=== PATIENT | male | born 1985 | race Caucasian/White ===

== ENCOUNTER 2019-05-14 08:26 | Inpatient (IN) | payer BC, MEDICAID ==
[~2019-05-14] VITALS: Ht 172.7 cm; Wt 127.0 kg
[2019-05-14 08:36] VITALS: BP 147/90
[2019-05-14] MEDS ORDERED: LIDOCAINE/EPI 2% 1:100000 20 ML VIAL INJ ONE ×2 (10:24→10:25)
[2019-05-14] MEDS ORDERED: NACL 0.9% 1,000 ML IV ONE (10:30)
[2019-05-14 10:50] LABS: HEMATOCRIT 44.1 % (36-52); HEMOGLOBIN 14.7 g/dL (12.0-18.0); MEAN CORPUSCULAR HEMOGLOBIN 32 pg (27-31); MEAN CORPUSCULAR HGB CONC 33 g/dL (33-37); MEAN CORPUSCULAR VOLUME 94.9 fL (80-94); PLATELET COUNT (AUTO) 347 K/uL (140-450); RED BLOOD CELL COUNT(AUTO) 4.65 MIL/uL (4.20-6.10); RED CELL DISTRIBUTION WIDTH 13.1 % (11.6-13.7); WHITE BLOOD COUNT (AUTO) 23.2 K/uL (4.8-10.8)
[2019-05-14 10:57] LABS: ANION GAP 14.2 (8-16); CARBON DIOXIDE 25.9 mmol/L (21-32); POTASSIUM 4.1 mmol/L (3.5-5.1)
[2019-05-14 11:00] LABS: LYMPHOCYTES % (MANUAL) 11 % (20-46)
[2019-05-14 11:01] LABS: MONOCYTES % (MANUAL) 8 % (5-12)
[2019-05-14 11:12] LABS: TOTAL BILIRUBIN 0.6 mg/dL (0.0-1.0)
[2019-05-14] MEDS ORDERED: PIPERACILLIN/TAZOBACTAM 3.375 GM in DEXTROSE 5% 50 ML IV ONE (11:35)
[2019-05-14] MEDS ORDERED: VANCOMYCIN 1,000 MG in DEXTROSE 5% 250 ML IV ONE (11:35)
[2019-05-14] MEDS ORDERED: VANCOMYCIN 1,000 MG VIAL ONE ×2 (11:51→21:29)
[2019-05-14] MEDS ORDERED: ONDANSETRON 4 MG/2 ML VIAL IVP PRN ×2 (17:55→19:00)
[2019-05-14] MEDS ORDERED: ACETAMINOPHEN 325 MG TAB PO PRN (17:55)
[2019-05-14] MEDS ORDERED: LABETALOL 100 MG/20 ML VIAL ONE (18:39)
[2019-05-14] MEDS ORDERED: hydrALAZINE 20 MG/ML VIAL ONE (18:39)
[2019-05-14] MEDS ORDERED: KETAMINE 500 MG/5 ML VIAL ONE (18:41)
[2019-05-14] MEDS ORDERED: MIDAZOLAM 2 MG/2 ML VIAL ONE (18:41)
[2019-05-14] MEDS ORDERED: BUPIVACAINE-MPF/EPI 0.5% 30 ML VIAL INJ ONE ×2 (18:47→19:13)
[2019-05-14] MEDS ORDERED: BLOOD GLUCOSE MONITORING 1 DEV DEV FS SCH (19:00)
[2019-05-14] MEDS ORDERED: HYDROmorphone 1 MG/ML AMP IVP PRN (19:00)
[2019-05-14 19:03] LABS: FREE T4 (FREE THYROXINE) 1.44 ng/dL (0.76-1.46); MAGNESIUM 1.8 mg/dL (1.8-2.4); PHOSPHORUS 3.5 mg/dL (2.5-4.9); THYROID STIMULATING HORMONE 2.78 uIU/mL (0.34-3.74)
[2019-05-14] MEDS ORDERED: LIDOCAINE 1% 500 MG/50 ML VIAL ONE (19:03)
[2019-05-14 19:12] LABS: PROTHROMBIN TIME 10.4 secs (10.8-13.4)
[2019-05-14 20:25] VITALS: BP 135/75
[2019-05-14] MEDS ORDERED: VANCOMYCIN PER PHARMACY MC PRN (20:45)
[2019-05-14] MEDS ORDERED: DEXTROSE 50% 50 ML SYR IVP PRN (20:50)
[2019-05-14] MEDS: DOCUSATE SODIUM 100 MG GELCAP PO SCH (21:38)
[2019-05-14] MEDS: NACL 0.9% 1,000 ML IV SCH (21:38)
[2019-05-14] MEDS: BLOOD GLUCOSE MONITORING 1 DEV DEV FS SCH (21:48)
[2019-05-14] MEDS: INSULIN LISPRO SLIDING SCALE 100 UNITS/ML VIAL SUBQ PRN (21:58)
[2019-05-14] MEDS ORDERED: VANCOMYCIN 1GM/DEXT 5% PREMIX 200 ML IV SCH (22:00)
[2019-05-15] VITALS: BP 126/73
[2019-05-15] MEDS ORDERED: PIPERACILLIN/TAZOBACTAM 3.375 GM VIAL IV ONE ×2 (00:26→05:36)
[2019-05-15] MEDS: PIPERACILLIN/TAZOBACTAM 3.375 GM in DEXTROSE 5% 50 ML IV SCH ×5 (00:33→23:25)
[2019-05-15] MEDS: NACL 0.9% 1,000 ML IV SCH ×4 (05:54→21:29)
[2019-05-15] MEDS: BLOOD GLUCOSE MONITORING 1 DEV DEV FS SCH ×4 (06:31→21:14)
[2019-05-15] MEDS: INSULIN LISPRO SLIDING SCALE 100 UNITS/ML VIAL SUBQ PRN ×3 (06:35→21:27)
[2019-05-15 07:16] LABS: CHOL/HDL RATIO 8.3 (1-4.5)
[2019-05-15 08:00] VITALS: BP 113/70
[2019-05-15 08:32] LABS: BASOPHILS # (AUTO) 0.1 K/uL (0.00-0.22); BASOPHILS % (AUTO) 0.3 % (0.0-2.0); EOSINOPHILS # (AUTO) 0.2 K/uL (0-0.4); EOSINOPHILS % (AUTO) 1.2 % (0.0-4.0); HEMATOCRIT 43.2 % (36-52); HEMOGLOBIN 14.4 g/dL (12.0-18.0); LYMPHOCYTES # (AUTO) 1.7 K/uL (2.0-11.5); MEAN CORPUSCULAR HEMOGLOBIN 32 pg (27-31); MEAN CORPUSCULAR HGB CONC 33 g/dL (33-37); MEAN CORPUSCULAR VOLUME 95.2 fL (80-94); MONOCYTES # (AUTO) 1.1 K/uL (0.8-1.0); NEUTROPHILS # (AUTO) 12.8 K/uL (1.8-7.7); NEUTROPHILS % (AUTO) 80.5 % (42.2-75.2); PLATELET COUNT (AUTO) 378 K/uL (140-450); RED BLOOD CELL COUNT(AUTO) 4.54 MIL/uL (4.20-6.10); RED CELL DISTRIBUTION WIDTH 13.1 % (11.6-13.7); WHITE BLOOD COUNT (AUTO) 15.9 K/uL (4.8-10.8)
[2019-05-15] MEDS: LACTOBACILLUS RHAMNOSUS GG 1 EACH CAP PO SCH (08:41)
[2019-05-15] MEDS: VANCOMYCIN 1,500 MG in NACL 0.9% 500 ML IV SCH ×2 (08:41→16:36)
[2019-05-15] MEDS: DOCUSATE SODIUM 100 MG GELCAP PO SCH ×2 (08:41→21:14)
[2019-05-15 09:30] LABS: MAGNESIUM 1.8 mg/dL (1.8-2.4); PHOSPHORUS 3.9 mg/dL (2.5-4.9)
[2019-05-15] MEDS: MORPHINE SULFATE 4 MG/ML SYR IVP PRN (10:24)
[2019-05-15 11:15] LABS: ANION GAP 16.3 (8-16); CARBON DIOXIDE 23.8 mmol/L (21-32); CREATININE 0.9 mg/dL (0.7-1.3); POTASSIUM 4.1 mmol/L (3.5-5.1)
[2019-05-15 16:00] VITALS: BP 110/74
[2019-05-15] MEDS: HYDROcodone/APAP 7.5/325 MG 1 TAB PO PRN (16:51)
[2019-05-16 00:22] VITALS: BP 140/86
[2019-05-16] MEDS: VANCOMYCIN 1,500 MG in NACL 0.9% 500 ML IV SCH ×3 (01:20→18:30)
[2019-05-16] MEDS: INSULIN LISPRO SLIDING SCALE 100 UNITS/ML VIAL SUBQ PRN ×3 (06:29→20:47)
[2019-05-16] MEDS: BLOOD GLUCOSE MONITORING 1 DEV DEV FS SCH ×4 (06:29→20:48)
[2019-05-16] MEDS: PIPERACILLIN/TAZOBACTAM 3.375 GM in DEXTROSE 5% 50 ML IV SCH ×4 (06:32→23:18)
[2019-05-16 07:33] LABS: CARBON DIOXIDE 27.4 mmol/L (21-32); CREATININE 0.8 mg/dL (0.7-1.3); POTASSIUM 4.4 mmol/L (3.5-5.1)
[2019-05-16 07:34] LABS: MAGNESIUM 1.9 mg/dL (1.8-2.4); PHOSPHORUS 4.1 mg/dL (2.5-4.9)
[2019-05-16 08:00] VITALS: BP 135/93
[2019-05-16 08:28] LABS: BASOPHILS # (AUTO) 0.1 K/uL (0.00-0.22); BASOPHILS % (AUTO) 1.2 % (0.0-2.0); EOSINOPHILS # (AUTO) 0.3 K/uL (0-0.4); EOSINOPHILS % (AUTO) 2.7 % (0.0-4.0); HEMATOCRIT 42.6 % (36-52); HEMOGLOBIN 13.9 g/dL (12.0-18.0); LYMPHOCYTES # (AUTO) 2.3 K/uL (2.0-11.5); LYMPHOCYTES % (AUTO) 18.4 % (20.5-51.1); MEAN CORPUSCULAR HEMOGLOBIN 31 pg (27-31); MEAN CORPUSCULAR HGB CONC 33 g/dL (33-37); MEAN CORPUSCULAR VOLUME 95.8 fL (80-94); MONOCYTES # (AUTO) 0.9 K/uL (0.8-1.0); MONOCYTES % (AUTO) 7.6 % (1.7-9.3); NEUTROPHILS # (AUTO) 8.7 K/uL (1.8-7.7); NEUTROPHILS % (AUTO) 70.1 % (42.2-75.2); PLATELET COUNT (AUTO) 350 K/uL (140-450); RED BLOOD CELL COUNT(AUTO) 4.44 MIL/uL (4.20-6.10); RED CELL DISTRIBUTION WIDTH 13.5 % (11.6-13.7); WHITE BLOOD COUNT (AUTO) 12.4 K/uL (4.8-10.8)
[2019-05-16] MEDS: HYDROcodone/APAP 7.5/325 MG 1 TAB PO PRN ×2 (08:44→18:26)
[2019-05-16] MEDS: DOCUSATE SODIUM 100 MG GELCAP PO SCH ×3 (08:44→20:43)
[2019-05-16] MEDS: LACTOBACILLUS RHAMNOSUS GG 1 EACH CAP PO SCH (08:44)
[2019-05-16] MEDS: GAUZE TP SCH (13:00)
[2019-05-16 16:00] VITALS: BP 134/83
[2019-05-16] MEDS: NACL 0.9% 1,000 ML IV SCH (20:48)
[2019-05-17] VITALS: BP 128/87
[2019-05-17] MEDS: VANCOMYCIN 1,500 MG in NACL 0.9% 500 ML IV SCH ×3 (00:16→18:05)
[2019-05-17] MEDS: PIPERACILLIN/TAZOBACTAM 3.375 GM in DEXTROSE 5% 50 ML IV SCH ×3 (05:48→17:25)
[2019-05-17] MEDS: BLOOD GLUCOSE MONITORING 1 DEV DEV FS SCH ×4 (06:37→21:06)
[2019-05-17 07:01] LABS: BASOPHILS % (AUTO) 0.3 % (0.0-2.0); EOSINOPHILS # (AUTO) 0.3 K/uL (0-0.4); EOSINOPHILS % (AUTO) 2.9 % (0.0-4.0); HEMOGLOBIN 14.5 g/dL (12.0-18.0); LYMPHOCYTES # (AUTO) 2.1 K/uL (2.0-11.5); MEAN CORPUSCULAR HEMOGLOBIN 32 pg (27-31); MEAN CORPUSCULAR HGB CONC 33 g/dL (33-37); MEAN CORPUSCULAR VOLUME 95.9 fL (80-94); MONOCYTES # (AUTO) 0.7 K/uL (0.8-1.0); MONOCYTES % (AUTO) 7.4 % (1.7-9.3); NEUTROPHILS # (AUTO) 6.9 K/uL (1.8-7.7); NEUTROPHILS % (AUTO) 68.4 % (42.2-75.2); PLATELET COUNT (AUTO) 397 K/uL (140-450); RED BLOOD CELL COUNT(AUTO) 4.59 MIL/uL (4.20-6.10); RED CELL DISTRIBUTION WIDTH 13.1 % (11.6-13.7)
[2019-05-17 08:00] LABS: ANION GAP 11.8 (8-16); CARBON DIOXIDE 30.4 mmol/L (21-32); CREATININE 0.8 mg/dL (0.7-1.3); MAGNESIUM 1.8 mg/dL (1.8-2.4); PHOSPHORUS 4.3 mg/dL (2.5-4.9); POTASSIUM 4.2 mmol/L (3.5-5.1)
[2019-05-17 08:15] VITALS: BP 138/85
[2019-05-17] MEDS: DOCUSATE SODIUM 100 MG GELCAP PO SCH ×3 (09:00→21:07)
[2019-05-17] MEDS: HYDROcodone/APAP 7.5/325 MG 1 TAB PO PRN (09:10)
[2019-05-17] MEDS: LACTOBACILLUS RHAMNOSUS GG 1 EACH CAP PO SCH (09:11)
[2019-05-17] MEDS ORDERED: LORazepam 2 MG/ML VIAL IM/IVP SCH (10:10)
[2019-05-17] MEDS ORDERED: LORazepam 2 MG/ML VIAL ONE (10:21)
[2019-05-17] MEDS ORDERED: HYDROmorphone 1 MG/ML AMP ONE (10:24)
[2019-05-17] MEDS ORDERED: HYDROmorphone 1 MG/ML AMP IVP SCH (10:30)
[2019-05-17] MEDS: MORPHINE SULFATE 4 MG/ML SYR IVP PRN ×2 (10:40→21:11)
[2019-05-17] MEDS: INSULIN LISPRO SLIDING SCALE 100 UNITS/ML VIAL SUBQ PRN ×2 (12:55→21:26)
[2019-05-17] MEDS: GAUZE TP SCH (13:39)
[2019-05-17] MEDS: NACL 0.9% 1,000 ML IV SCH (13:40)
[2019-05-17 16:35] VITALS: BP 131/90
[2019-05-18] VITALS: BP 131/79
[2019-05-18] MEDS: PIPERACILLIN/TAZOBACTAM 3.375 GM in DEXTROSE 5% 50 ML IV SCH ×2 (00:14→05:26)
[2019-05-18] MEDS: VANCOMYCIN 1,500 MG in NACL 0.9% 500 ML IV SCH (01:14)
[2019-05-18] MEDS: NACL 0.9% 1,000 ML IV SCH (06:16)
[2019-05-18] MEDS: BLOOD GLUCOSE MONITORING 1 DEV DEV FS SCH (06:21)
[2019-05-18 08:00] VITALS: BP 122/82
[2019-05-18 08:18] LABS: BASOPHILS # (AUTO) 0.1 K/uL (0.00-0.22); BASOPHILS % (AUTO) 0.7 % (0.0-2.0); EOSINOPHILS # (AUTO) 0.2 K/uL (0-0.4); EOSINOPHILS % (AUTO) 2.1 % (0.0-4.0); HEMATOCRIT 45.4 % (36-52); HEMOGLOBIN 15.1 g/dL (12.0-18.0); LYMPHOCYTES # (AUTO) 2.2 K/uL (2.0-11.5); LYMPHOCYTES % (AUTO) 19.5 % (20.5-51.1); MEAN CORPUSCULAR HEMOGLOBIN 32 pg (27-31); MEAN CORPUSCULAR HGB CONC 33 g/dL (33-37); MEAN CORPUSCULAR VOLUME 95.1 fL (80-94); MONOCYTES # (AUTO) 0.7 K/uL (0.8-1.0); MONOCYTES % (AUTO) 6.1 % (1.7-9.3); NEUTROPHILS # (AUTO) 8.2 K/uL (1.8-7.7); NEUTROPHILS % (AUTO) 71.6 % (42.2-75.2); PLATELET COUNT (AUTO) 414 K/uL (140-450); RED BLOOD CELL COUNT(AUTO) 4.77 MIL/uL (4.20-6.10); RED CELL DISTRIBUTION WIDTH 13.2 % (11.6-13.7); WHITE BLOOD COUNT (AUTO) 11.5 K/uL (4.8-10.8)
[2019-05-18 08:41] LABS: ANION GAP 13.2 (8-16); CARBON DIOXIDE 28.9 mmol/L (21-32); CREATININE 0.8 mg/dL (0.7-1.3); POTASSIUM 4.1 mmol/L (3.5-5.1)
[2019-05-18 08:45] LABS: MAGNESIUM 1.9 mg/dL (1.8-2.4)
[2019-05-18] MEDS: DOCUSATE SODIUM 100 MG GELCAP PO SCH (09:00)
[2019-05-18] MEDS: LACTOBACILLUS RHAMNOSUS GG 1 EACH CAP PO SCH (09:53)
[2019-05-18] MEDS: HYDROcodone/APAP 7.5/325 MG 1 TAB PO PRN (09:53)
[2019-05-18] MEDS ORDERED: HYDR-5123 PO (09:59)
[2019-05-18] MEDS ORDERED: SULF-58 PO (09:59)
== END 2019-05-18 11:10 | disposition home or self-care (01) | DRG 720 ==
LOC: MED 08:26 → MTU 17:51
PROVIDERS: ADMIT General Practice; ATTEND General Practice
PROC: 0JB70ZZ Excision of Back Subcutaneous Tissue and Fascia, Open Approach (ICD-10-PCS; principal; 2019-05-14 18:00)
DX: A41.9 Sepsis, unspecified organism (principal); M72.6 Necrotizing fasciitis; E44.0 Moderate protein-calorie malnutrition; L02.212 Cutaneous abscess of back [any part, except buttock and flank]; L03.312 Cellulitis of back [any part except buttock and flank]; E66.01 Morbid (severe) obesity due to excess calories; R65.20 Severe sepsis without septic shock; E87.1 Hypo-osmolality and hyponatremia; R73.03 Prediabetes; E87.8 Other disorders of electrolyte and fluid balance, not elsewhere classified; Z91.013 Allergy to seafood; Z87.891 Personal history of nicotine dependence; Z68.41 Body mass index [BMI] 40.0-44.9, adult
CPT/HCPCS: 36415; 71250; 76881; 80048; 80053; 80202; 82150; 82948; 83036; 83605; 83690; 83735; 83880; 84100; 84439; 84443; 84484; 85025; 85610; 85730; 87040; 87070; 87075; 87081; 87186; 87205; 88304; 93005; 96361; 96365; 96367; 99291; J0360; J1170; J1815; J2001; J2060; J2250; J2270; J2543; J3370; J3490; J7030; J7060; Q0092

== ENCOUNTER 2019-08-12 11:52 | Emergency (ER) | payer MEDICAID, OTHER ==
[~2019-08-12] VITALS: Ht 175.3 cm; Wt 127.0 kg
[~2019-08-12 11:52] MED LIST: HYDR-5123 PO; SULF-58 PO
--- NOTE | 2019-08-12 12:06 | NUR ---
PT AMBULATED TO ER BED 08
[2019-08-12 12:14] VITALS: BP 149/91
--- NOTE | 2019-08-12 12:20 | NUR ---
C/O ABSCESS TO MID BACK- REDNESS WITH MILD SWELLING X 2 DAYS NOTED. ABSCESS APPROX 2 CM IN DIAMETER. NO DRAINAGE A THIS TIME. PER PATIENT, HE WAS SEEN IN FOR ABSCESS IN SIMILAR AREA. PATIENT TOOK [place] LAST NIGHT WITH RELIEF, BUT STATES HE RAN OUT YESTERDAY. PAIN 8/10 AT THIS TIME. PT ALERT AND AWAKE, VS STABLE, AMBUALTORY WITH STEADY GAIT. HX--DM RX--NON COMPLIANT
--- NOTE | 2019-08-12 12:27 | NUR ---
DR PATTON AT BEDSIDE
[2019-08-12] MEDS ORDERED: traMADol 50 MG TAB PO ONE (12:40)
[2019-08-12] MEDS ORDERED: IBUPROFEN 800 MG TAB PO ONE (12:40)
[2019-08-12] MEDS ORDERED: DEXAMETHASONE 10 MG/ML VIAL IM ONE (12:40)
[2019-08-12] MEDS ORDERED: CLINDAMYCIN 600 MG/4 ML VIAL IM ONE (12:40)
--- NOTE | 2019-08-12 13:02 | NUR ---
TRAMADOL, MOTRIN, CLINDAMYOCIN, AND DECADRON ADMINISTERED. PT TOLERATED WELL
--- NOTE | 2019-08-12 14:20 | NUR ---
NADR, PAIN 10/26
[2019-08-12 14:21] VITALS: BP 133/87
--- NOTE | 2019-08-12 14:21 | NUR ---
Patient discharged with v/s stable. Written and verbal after care instructions given and explained REGARDING ABSCESS. Patient alert, oriented and verbalized understanding of instructions. Ambulatory with steady gait. All questions addressed prior to discharge. ID band removed. Patient advised to follow up with PMD. Rx of TRAMADOL, BACTRIM, AND CLINDAMYCIN given. Patient educated on indication of medication including possible reaction and side effects. Opportunity to ask questions provided and answered. 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
== END 2019-08-12 14:21 | disposition home or self-care (01) ==
LOC: MED 11:52
DX: L03.312 Cellulitis of back [any part except buttock and flank] (principal); E11.9 Type 2 diabetes mellitus without complications; Z91.013 Allergy to seafood; Z79.899 Other long term (current) drug therapy
CPT/HCPCS: 96372; 99283; J1100; J3490

== ENCOUNTER 2022-09-26 00:55 | Emergency (ER) | payer MEDICAID, OTHER ==
[~2022-09-26] VITALS: Ht 175.3 cm; Wt 117.9 kg
[~2022-09-26 00:55] MED LIST changes: +HYDR-5080 PO; -HYDR-5123 PO
--- NOTE | 2022-09-26 00:59 | NUR ---
PT BIBA BLS ER BED 12
[2022-09-26 01:03] VITALS: BP 165/108
--- NOTE | 2022-09-26 01:08 | NUR ---
pt is here beause he thinks he has allergic reaction to shrimp. He has some rashes on the left hand and had some tingling sesnation.
--- NOTE | 2022-09-26 01:09 | NUR ---
Dr. Braden examining patient.
--- NOTE | 2022-09-26 01:10 | NUR ---
BIBA for allergic reaction, pt had facial swelling after shrimp allergies. denies any SOB or difficulty breathing at this time. denies pain. noted rash on both arms and abdominal area. pmhx diabetes and hypertension. allergy to shrimp.
[2022-09-26] MEDS ORDERED: diphenhydrAMINE 50 MG CAP PO ONE (01:15)
[2022-09-26] MEDS ORDERED: DEXAMETHASONE 10 MG/ML VIAL PO ONE (01:15)
[2022-09-26] MEDS ORDERED: FAMOTIDINE 20 MG TAB PO ONE (01:15)
[2022-09-26] MEDS ORDERED: EPIN1KIT31 IM (02:57)
[2022-09-26 03:11] VITALS: BP 124/76
--- NOTE | 2022-09-26 03:12 | NUR ---
Patient discharged with v/s stable. Written and verbal after care instructions given and explained. New prescription for epipen. Patient verbalized understanding. Ambulatory with steady gait. All questions addressed prior to discharge. Advised to follow up with PMD.
== END 2022-09-26 03:11 | disposition home or self-care (01) ==
LOC: MED 00:55
DX: T78.40XA Allergy, unspecified, initial encounter (principal); L29.9 Pruritus, unspecified; E11.9 Type 2 diabetes mellitus without complications; I10 Essential (primary) hypertension; Z79.899 Other long term (current) drug therapy; Z91.013 Allergy to seafood; X58.XXXA Exposure to other specified factors, initial encounter
CPT/HCPCS: 99284; J1100; Q0163

== ENCOUNTER 2024-04-10 16:28 | Emergency (ER) | payer OTHER ==
[~2024-04-10] VITALS: Ht 175.3 cm; Wt 130.2 kg
[~2024-04-10 16:28] MED LIST changes: +EPIN1KIT31 IM
[2024-04-10 16:29] VITALS: BP 174/111; PULSE 118; RESP 20; TEMP 98; O2SAT 99
[2024-04-10] MEDS: NACL 0.9% 1,000 ML IV ONE (17:36)
[2024-04-10] MEDS ORDERED: AMLO5TAB PO (17:38)
[2024-04-10 18:40] LABS: BASOPHILS # (AUTO) 0.1 K/uL (0.00-0.22); BASOPHILS % (AUTO) 0.7 % (0.0-2.0); EOSINOPHILS # (AUTO) 0.1 K/uL (0-0.4); EOSINOPHILS % (AUTO) 0.5 % (0.0-4.0); HEMATOCRIT 48.2 % (36-52); HEMOGLOBIN 16.7 g/dL (12.0-18.0); LYMPHOCYTES # (AUTO) 2.1 K/uL (2.0-11.5); MEAN CORPUSCULAR HEMOGLOBIN 33 pg (27-31); MEAN CORPUSCULAR HGB CONC 35 g/dL (33-37); MEAN CORPUSCULAR VOLUME 94.3 fL (80-94); MONOCYTES # (AUTO) 0.9 K/uL (0.8-1.0); MONOCYTES % (AUTO) 8.3 % (1.7-9.3); NEUTROPHILS % (AUTO) 71.5 % (42.2-75.2); PLATELET COUNT (AUTO) 300 K/uL (140-450); RED BLOOD CELL COUNT(AUTO) 5.11 MIL/uL (4.20-6.10); RED CELL DISTRIBUTION WIDTH 12.8 % (11.6-13.7); WHITE BLOOD COUNT (AUTO) 11.2 K/uL (4.8-10.8)
[2024-04-10 18:44] LABS: ANION GAP 17.2 (8-16); CALCIUM 9.5 mg/dL (8.5-10.1); CARBON DIOXIDE 25.3 mmol/L (21-32); CREATININE 0.8 mg/dL (0.6-1.3); POTASSIUM 3.5 mmol/L (3.5-5.1)
[2024-04-10 19:50] VITALS: BP 141/95; PULSE 82; RESP 16; TEMP 36.66960; O2SAT 99
== END 2024-04-10 19:50 | disposition home or self-care (01) ==
LOC: MED 16:28
DX: I10 Essential (primary) hypertension (principal); E11.9 Type 2 diabetes mellitus without complications; Z91.148 Patient's other noncompliance with medication regimen for other reason; Z79.899 Other long term (current) drug therapy; Z91.013 Allergy to seafood
CPT/HCPCS: 36415; 70450; 71045; 80048; 83880; 84484; 85025; 93005; 96360; 99285; J7030